=== PATIENT | male | born 1975 | race African-American/Black ===

== ENCOUNTER 2020-09-24 14:44 | Inpatient (IN) | payer MEDICAID, OTHER ==
[~2020-09-24] VITALS: Ht 188 cm; Wt 85.6 kg
[2020-09-24] MEDS ORDERED: ASPirin 81 mg TAB PO ONE (15:30)
[2020-09-24 16:27] LABS: Basophils # (auto) 0.1 10 ^3/uL (0-0.2); Basophils % (auto) 1.3 % (0.0-2.0); Eosinophils # (auto) 0.1 10 ^3/uL (0-0.8); Eosinophils % (auto) 2.1 % (0.0-7.0); Hematocrit 39.7 % (41.0-53.0); Hemoglobin 14.1 g/dL (13.5-17.5); Lymphocytes # (auto) 1.5 10 ^3/uL (0.4-5.4); Lymphocytes % (auto) 30.2 % (10.0-50.0); Mean Corpuscular Hemoglobin 32.3 pg (28.0-32.0); Mean Corpuscular Hgb Conc. 35.4 g/dL (32.0-36.0); Mean Corpuscular Volume 91.3 fL (80.0-100.0); Monocytes # (auto) 0.3 10 ^3/uL (0-1.3); Monocytes % (auto) 5.3 % (0.0-12.0); Neutrophils # (auto) 3.1 10 ^3/uL (1.6-8.6); Neutrophils % (auto) 61.1 % (37.0-80.0); Nucleated Red Blood Cells % 0.1 %; Platelet Count (auto) 225 10^3/uL (140-450); Red Blood Cells 4.35 10^6/uL (4.5-5.90); Red Cell Distribution Width 12.9 % (11.8-14.3); White Blood Cell 5.1 10^3/uL (4.4-10.8)
[2020-09-24 16:44] LABS: Albumin 3.5 g/dL (3.4-5.0); Anion Gap 6 (5-15); Blood Urea Nitrogen 16 mg/dL (7-18); Calcium 8.4 mg/dL (8.5-10.1); Carbon Dioxide 26 mmol/L (21-32); Chloride 106 mmol/L (98-107); Glucose 93 mg/dL (74-106); Potassium 4.1 mmol/L (3.5-5.1); Sodium 138 mmol/L (136-145)
[2020-09-24 16:49] LABS: Alanine Aminotransferase 26 U/L (16-61); Alkaline Phosphatase 70 U/L (45-117); Aspartate Aminotransferase 21 U/L (15-37); Bilirubin, Total 0.8 mg/dL (0.2-1.0); GFR African American 119 mL/min; GFR Non-African American 98 mL/min; Total Protein 7.2 g/dL (6.4-8.2)
[2020-09-24 17:15] LABS: INR 0.99 (0.9-1.15); Partial Thromboplastin Time 28.5 sec (23.0-31.2)
[2020-09-24] MEDS ORDERED: NITROGLYCERIN 0.4 MG SL TAB SL ONE (17:15)
[2020-09-24] MEDS ORDERED: HYDROcodone-ACET 5/325MG TAB PO PRN (17:30)
[2020-09-24] MEDS ORDERED: ONDANSETRON HCL 4 MG/2 ML VIAL IV PRN (17:30)
[2020-09-24] MEDS ORDERED: MORPHINE SULF INJ 2 MG/ML SYRINGE 1ML IV PRN ×2 (17:30)
[2020-09-24] MEDS ORDERED: ACETAMINOPHEN 500 MG TAB PO PRN (17:30)
[2020-09-24] MEDS ORDERED: NITROGLYCERIN 0.4 MG SL TAB SL PRN (17:30)
[2020-09-24 20:16] LABS: Urine Bacteria NONE SEEN /hpf (None Seen); Urine Blood Negative /uL (Negative); Urine Specific Gravity 1.019 (1.001-1.035); Urine WBC <1 /hpf (0 - 3)
[2020-09-24 22:25] VITALS: BP 112/68
[2020-09-25 05:21] VITALS: BP 122/59
[2020-09-25] MEDS ORDERED: GIVE UN DILUTED IV STA (08:17)
[2020-09-25] MEDS ORDERED: ADENOSINE IV STA (08:17)
[2020-09-25] MEDS ORDERED: ADENOSINE 72 MG in GIVE UN-DILUTED 0 ML IV STA (08:58)
[2020-09-25 09:00] VITALS: BP_SYST 115; BP_SYST 124; BP_DIAS 67; BP_DIAS 68
[2020-09-25] MEDS: ASPirin-EC 81 mg tab PO SCH (10:00)
[2020-09-25] MEDS: FAMOTIDINE 20 MG TAB PO SCH (10:00)
[2020-09-25 13:00] VITALS: BP 119/63
[2020-09-25 17:00] VITALS: BP 115/61
[2020-09-25 22:00] VITALS: BP 122/64
[2020-09-26 05:00] VITALS: BP 109/56
[2020-09-26 09:00] VITALS: BP 114/64
[2020-09-26] MEDS: ASPirin-EC 81 mg tab PO SCH (09:59)
[2020-09-26] MEDS: FAMOTIDINE 20 MG TAB PO SCH (09:59)
[2020-09-26] MEDS ORDERED: SODIUM CHLORIDE 0.9% 1,000 ML IV SCH (10:45)
[2020-09-26 13:00] VITALS: BP 105/55
[2020-09-26] MEDS ORDERED: VERAPAMIL 2.5MG/ML INJ 2ML VIAL IV ONE (13:16)
[2020-09-26] MEDS ORDERED: fentaNYL CITRATE 100 MCG/2 ML VL ONE (13:16)
[2020-09-26] MEDS ORDERED: ANGIOMAX 250 MG VIAL IV ONE (13:16)
[2020-09-26] MEDS ORDERED: LIDOCAINE 2%HCL (LOCAL ANESTH.) INJ 20ML MDV ONE (13:17)
[2020-09-26] MEDS ORDERED: MIDAZOLAM HCL 1MG/1ML-2 ML VIAL ONE (13:17)
[2020-09-26] MEDS ORDERED: SODIUM CHL 0.9% 0 ML ONE (13:17)
[2020-09-26] MEDS ORDERED: IODIXANOL 320MG/ML 100ML BTL IV ONE (13:25)
[2020-09-26] MEDS ORDERED: HEPARIN SODIUM (PORCINE) 5000 UNITS/ML 1ML VIAL ONE (13:34)
[2020-09-26 16:47] VITALS: BP 113/68
[2020-09-26 18:16] VITALS: BP 121/71
[2020-09-26 20:00] VITALS: BP 111/64
== END 2020-09-26 20:10 | disposition home or self-care (01) | DRG 191 ==
LOC: ER 14:44 → TELE 17:16 → TELE-CENTR 20:16
PROVIDERS: ADMIT Nurse Practitioner Acute Care; ATTEND Internal Medicine
PROC: B211YZZ Fluoroscopy of Multiple Coronary Arteries using Other Contrast (ICD-10-PCS; principal; 2020-09-26)
PROC: 4A023N7 Measurement of Cardiac Sampling and Pressure, Left Heart, Percutaneous Approach (ICD-10-PCS; 2020-09-26)
DX: I25.10 Atherosclerotic heart disease of native coronary artery without angina pectoris (principal); F17.200 Nicotine dependence, unspecified, uncomplicated; F19.10 Other psychoactive substance abuse, uncomplicated; I10 Essential (primary) hypertension; Z20.822 Contact with and (suspected) exposure to COVID-19; K80.20 Calculus of gallbladder without cholecystitis without obstruction; Z80.0 Family history of malignant neoplasm of digestive organs; Z82.49 Family history of ischemic heart disease and other diseases of the circulatory system; Z79.899 Other long term (current) drug therapy
CPT/HCPCS: 36415; 71045; 78452; 80053; 81001; 84484; 85025; 85610; 85652; 85730; 86141; 86850; 86900; 86901; 87426; 93005; 93017; 93306; 93454; 99152; G0378; J0153; J2250; Q9967

== ENCOUNTER 2022-01-07 12:50 | Emergency (ER) | payer MEDICAID ==
[~2022-01-07] VITALS: Ht 188 cm; Wt 86.3 kg
[2022-01-07 13:05] VITALS: BP 112/41
== END 2022-01-07 18:08 | disposition left against medical advice (07) ==
LOC: ER 12:50
DX: M25.551 Pain in right hip (principal); M54.50 Low back pain, unspecified; Z53.21 Procedure and treatment not carried out due to patient leaving prior to being seen by health care provider